=== PATIENT | male | born 1985 | race American Indian/Alaskan Native ===

== ENCOUNTER 2017-02-12 23:37 | Inpatient (IN) | payer SELFPAY ==
[2017-02-13] MEDS ORDERED: NACL 0.9% 1000 ML 2,000 ML IV ONE ×2 (01:51→06:34)
[2017-02-13] MEDS ORDERED: ZOFRAN IV ONE (01:53)
[2017-02-13 02:27] LABS: Basophils % (Auto) 0.9 % (0.0-1.8); Eosinophils % (Auto) 0.1 % (0.0-4.3); Hematocrit 42.6 % (35.5-45.6); Hemoglobin 14.3 gm/dl (11.8-15.2); Mean Corpuscular HGB Conc 34 % (32-34); Mean Corpuscular Hemoglobin 28 pg (28-32); Mean Corpuscular Volume 85 fl (84-94); Platelet Count 354 K/mm3 (140-440); Red Blood Count 5.02 M/mm3 (3.65-5.03); Red Cell Distribution Width 14.1 % (13.2-15.2)
[2017-02-13 02:48] LABS: Albumin 4.1 g/dL (3.9-5); Albumin/Globulin Ratio 1.1 %; Bilirubin,Total 0.4 mg/dL (0.1-1.2); Calcium 9.6 mg/dL (8.4-10.2); Chloride 77.4 mmol/L (98-107); Potassium 5.2 mmol/L (3.6-5.0); Total Protein 7.8 g/dL (6.3-8.2)
[2017-02-13] MEDS ORDERED: TYLENOL ONE (04:46)
[2017-02-13] MEDS ORDERED: TYLENOL PO ONE (04:58)
[2017-02-13] MEDS ORDERED: D50W (25GM) Syringe IV PRN (06:41)
[2017-02-13] MEDS ORDERED: NACL 0.9% 1000 ML 1,000 ML IV ONE (06:41)
[2017-02-13 06:49] LABS: Bilirubin,Urine NEG (Negative); Blood,Urine MOD (Negative); Ketones,Urine 80 mg/dL (Negative); Leukocyte Esterase,Urine NEG (Negative); Mucus,Urine FEW /HPF; Nitrite,Urine NEG (Negative); Urobilinogen,Urine < 2.0 mg/dL (<2.0)
[2017-02-13] MEDS ORDERED: MORPHINE IV ONE (06:49)
[2017-02-13] MEDS ORDERED: REGLAN IV ONE (06:51)
--- NOTE | 2017-02-13 06:52 | Emergency Department Report ---
ED N/V/D HPI - General Chief complaint: Hyperglycemia Stated complaint: ABD PAIN Time Seen by Provider: 02/13/17 06:41 Source: patient Mode of arrival: Ambulatory Limitations: No Limitations - History of Present Illness MD complaint: nausea, vomiting, abdominal pain -: Gradual, days(s) (6) Description of Vomiting: food contents Associated Abdominal Pain: Yes Location: [facility] Radiation: none Pain Scale: 10 - Related Data Allergies Allergy/AdvReac Type Severity Reaction Status Date / Time No Known Allergies Allergy Unverified 02/13/17 01:44 ED Review of Systems ROS: Stated complaint: ABD PAIN Other details as noted in HPI Constitutional: denies: chills, fever Eyes: denies: eye pain, eye discharge, vision change ENT: denies: ear pain, throat pain Respiratory: denies: cough, shortness of breath, wheezing Cardiovascular: denies: chest pain, palpitations Endocrine: no symptoms reported Gastrointestinal: nausea, vomiting. denies: diarrhea Genitourinary: denies: urgency, dysuria Musculoskeletal: denies: back pain, joint swelling, arthralgia Skin: denies: rash, lesions Neurological: denies: headache, weakness, paresthesias Psychiatric: denies: anxiety, depression Hematological/Lymphatic: denies: easy bleeding, easy bruising ED Past Medical Hx - Past Medical History Previous Medical History?: Yes Hx Hypertension: Yes Hx Diabetes: Yes - Surgical History Past Surgical History?: No - Social History Smoking Status: Current Every Day Smoker Substance Use Type: Marijuana ED Physical Exam - General Limitations: No Limitations General appearance: alert, in distress - Head Head exam: Present: atraumatic, normocephalic - Eye Eye exam: Present: normal appearance, EOMI - ENT ENT exam: Present: mucous membranes moist - Neck Neck exam: Present: normal inspection, full ROM - Respiratory Respiratory exam: Present: normal lung sounds bilaterally. Absent: respiratory distress, wheezes - Cardiovascular Cardiovascular Exam: Present: regular rate, normal rhythm. Absent: systolic murmur, diastolic murmur, rubs, gallop - GI/Abdominal GI/Abdominal exam: Present: soft, tenderness (LUPPER QUADRANT), normal bowel sounds - Rectal Rectal exam: Present: deferred - Extremities Exam Extremities exam: Present: normal inspection, full ROM - Back Exam Back exam: Present: normal inspection, full ROM - Neurological Exam Neurological exam: Present: alert, oriented X3 - Psychiatric Psychiatric exam: Present: normal affect, normal mood - Skin Skin exam: Present: warm, dry, intact, normal color. Absent: rash ED Course Vital Signs 02/13/17 02/13/17 02/13/17 00:27 00:32 01:40 Temperature 98.4 F 98.8 F Pulse Rate 121 H 125 H Respiratory 24 24 Rate Blood Pressure 161/111 161/111 Blood Pressure 161/111 [Right] O2 Sat by Pulse 100 100 100 Oximetry 02/13/17 02/13/17 02/13/17 05:00 06:00 06:23 Temperature 98.6 F Pulse Rate 114 H Respiratory 18 18 18 Rate Blood Pressure Blood Pressure 205/115 [Right] O2 Sat by Pulse 100 Oximetry 02/13/17 07:03 Temperature Pulse Rate Respiratory 16 Rate Blood Pressure Blood Pressure [Right] O2 Sat by Pulse Oximetry - Reevaluation(s) Reevaluation #1: 02/13/17 07:50 PT REQUIRING PAIN MEDICATION AND MEDICATON TO CONTROL NAUSEA ED Medical Decision Making - Lab Data Result diagrams: 02/13/17 02:12 02/13/17 07:15 - Radiology Data Radiology results: report reviewed (ACUTE ABD SERIES: NEGATIVE) Critical Care Time: Yes Critical care time in (mins) excluding proc time.: 60 Critical care attestation.: If time is entered above; I have spent that time in minutes in the direct care of this critically ill patient, excluding procedure time. BEVERLY Critical Care Time: 60MIN ED Disposition Clinical Impression: DKA, type 1 Qualifiers: Diabetes mellitus complication detail: without coma Qualified Code(s): E10.10 - Type 1 diabetes mellitus with ketoacidosis without coma Nausea & vomiting Qualifiers: Vomiting type: unspecified Vomiting Intractability: intractable Qualified Code( s): R11.2 - Nausea with vomiting, unspecified Abdominal pain Qualifiers: Abdominal location: upper abdomen, unspecified Qualified Code(s): R10.10 - Upper abdominal pain, unspecified Disposition: DC-09 OP ADMIT IP TO THIS HOSP Is pt being admited?: Yes Does the pt Need Aspirin: No Condition: Critical Instructions: Diabetic Ketoacidosis (ED) Referrals: KIRA LOPES MD [Primary Care Provider] - 3-5 Days Time of Disposition: 07:52 (CASE REVIEWED WITH ANAHY URIBE WHO WILL ADMIT THE PT TO THE HOSPITAL)
[2017-02-13] MEDS ORDERED: SODIUM CHLORIDE FLUSH SYRINGE 10 ML IV NR (07:00)
[2017-02-13] MEDS ORDERED: D5W/0.45% NACL/KCL 20 MEQ 20 MEQ/1,000 ML BAG IV SCH (07:00)
--- NOTE | 2017-02-13 07:23 | XRay Report ---
FINAL REPORT EXAM: XR ABD SERIES W CXR 1V HISTORY: abdominal pain,chest pain TECHNIQUE: An AP upright view of the chest was obtained along with three views of the abdomen. FINDINGS: The chest reveals normal heart size and mediastinum. The lungs are clear. The bones and soft tissues appear normal. The abdominal bowel gas pattern is within normal limits. There is no evidence of bowel distention or suspicious air-fluid levels. There is no evidence of mass effect or free air. There are several calcifications along the floor pelvis. The skeletal structures are well-maintained. IMPRESSION: No acute process in the chest. No acute process in the abdomen and pelvis.
[2017-02-13 07:43] LABS: Calcium 8.8 mg/dL (8.4-10.2); Chloride 83.7 mmol/L (98-107); Potassium 4.2 mmol/L (3.6-5.0)
[2017-02-13 07:44] LABS: Magnesium 2.5 mg/dL (1.7-2.3); Phosphorous 5.5 mg/dL (2.5-4.5)
[2017-02-13] MEDS: NovoLIN R 100 UNITS in NACL 0.9% 99 ML IV SCH ×3 (08:46→23:58)
[2017-02-13] MEDS ORDERED: ALUM-MAG HYDROX-SIMETH 200-200-20MG/5ML PO PRN (08:58)
[2017-02-13 09:00] LABS: Chloride 83.1 mmol/L (98-107)
[2017-02-13 09:49] LABS: Calcium 8.6 mg/dL (8.4-10.2); Magnesium 2.6 mg/dL (1.7-2.3); Potassium 3.9 mmol/L (3.6-5.0)
[2017-02-13] MEDS ORDERED: DULCOLAX PR PRN (10:00)
[2017-02-13] MEDS ORDERED: LOVENOX SUB-Q SCH (10:00)
[2017-02-13] MEDS: HEPARIN SUB-Q SCH ×2 (10:42→21:13)
[2017-02-13 10:54] LABS: Calcium 8.6 mg/dL (8.4-10.2); Chloride 94.6 mmol/L (98-107); Potassium 4.1 mmol/L (3.6-5.0)
[2017-02-13] MEDS ORDERED: NACL 0.9% 1000 ML 1,000 ML ONE (10:54)
[2017-02-13] MEDS ORDERED: NACL 0.9% 500 ML 500 ML IV ONE (11:02)
--- NOTE | 2017-02-13 12:13 | History and Physical Report ---
<RONY KAPADIA - Last Filed: 02/13/17 12:35> History of Present Illness Date of examination: 02/13/17 Date of admission: 02/13/17 08:58 Chief complaint: abdominal pain, nausea and vomiting History of present illness: Patient is a 31years old male with past medical histroy of diabetes mellitus type 1 who presents to the emergency department for abdominal pain, nausea and vomiting for the past 3 days.The patient states that for the past five days she has felt bloated and has had a decrease in appetite. Two days ago she began having intermittent generalized abdominal pain that initially felt like gas pains but it has now progressed to being nearly constant. Since 3 days ago he has had severe nausea and multiple times of bilious vomiting despite not having taken anything by mouth in over 24 hours. His last bowel movement was over 3 days ago. Initially, when he would eat the pain would increase but he has not eaten anything for over 24 hours. Vomiting is the only thing that seems to provide some minimal relief. Currently, the pain is described as a constant dull, diffuse pain and well localized. The intensity of the pain has been increasing over the past two days and on pain scale he now rates the pain at 5 out of 10. He denies a recent history of fever , jaundice, pruritis, diarrhea, hemoptysis, melena, or hematochezia. He reported polydipsia and polyuria. He denies chills or recent ill contact. Past History Past Medical History: diabetes (Type 1) Past Surgical History: No surgical history Social history: smoking Family history: diabetes, hypertension Medications and Allergies Allergies Allergy/AdvReac Type Severity Reaction Status Date / Time No Known Allergies Allergy Unverified 02/13/17 01:44 Home Medications Medication Instructions Recorded Confirmed Last Taken Type No Known Home Medications [No 02/13/17 02/13/17 Unknown History Reported Home Medications] Active Meds: Active Medications Al Hydrox/Mg Hydrox/Simethicone (Alum-Mag Hydrox-Simeth [id number]/5ml) 30 ml PO Q4H PRN PRN Reason: Indigestion Bisacodyl (Dulcolax) 10 mg MN QDAY PRN PRN Reason: constipation unrelieved by MOM Dextrose (D50w (25gm) Syringe) 0 ml IV PRN PRN PRN Reason: Hypoglycemia Heparin Sodium (Porcine) (Heparin) 5,000 unit SUB-Q Q12HR HAROON Potassium Chloride/Dextrose/Sod Cl (D5w/0.45% Nacl/Kcl 20 Meq) 20 meq in 1,000 mls @ 125 mls/hr IV DIRECT HAROON Insulin Human Regular 100 (units/ Sodium Chloride) 100 mls @ 6.35 mls/hr IV TITR HAROON; 6.35 UNITS/HR PRN Reason: Protocol Last Titration: 02/13/17 12:04 Dose: 4 units/hr, 4 mls/hr Morphine Sulfate (Morphine) 2 mg IV Q4H PRN PRN Reason: Pain, Moderate (4-6) Sodium Chloride (Sodium Chloride Flush Syringe 10 Ml) 10 ml IV PRN NR Stop: 02/18/17 23:59 Review of Systems Constitutional: weakness, malaise, poor appetite, no fever, no chills, no sweats Ears, nose, mouth and throat: no nasal congestion, no nasal discharge, no sinus pressure Cardiovascular: no chest pain, no orthopnea, no palpitations, no rapid/ irregular heart beat, no lightheadedness, no shortness of breath Respiratory: no excessive sputum, no hemoptysis, no shortness of breath Gastrointestinal: abdominal pain, nausea, vomiting, dyspepsia/bloating, no melena, no hematochezia, no jaundice Genitourinary Male: no urinary hesitancy, no nocturia, no erectile dysfunction Rectal: no incontinence Musculoskeletal: no low back pain, no shooting leg pain, no leg numbness/ tingling Integumentary: no pruritis, no redness, no sores Neurological: no numbness, no tingling, no seizures Psychiatric: no anxiety, no memory loss, no change in sleep habits, no sleep disturbances Endocrine: polyphagia, excessive thirst, polydipsia, no flushing, no weight change Hematologic/Lymphatic: no easy bruising, no easy bleeding Allergic/Immunologic: no urticaria, no allergic rhinitis Exam - Constitutional Vitals: Temp Pulse Resp BP Pulse Ox 98.6 F 84 12 201/100 98 02/13/17 06:23 02/13/17 11:30 02/13/17 11:30 02/13/17 11:30 02/13/17 11:30 General appearance: Present: no acute distress - EENT Eyes: Present: PERRL ENT: hearing intact - Neck Neck: Present: supple, normal ROM - Respiratory Respiratory effort: normal Respiratory: bilateral: CTA - Cardiovascular Rhythm: regular Heart Sounds: Present: S1 & S2 - Abdominal General gastrointestinal: Present: soft, non-tender Male genitourinary: Present: deferred - Rectal Rectal Exam: deferred - Integumentary Integumentary: Present: clear, warm, dry - Musculoskeletal Musculoskeletal: strength equal bilaterally - Psychiatric Psychiatric: appropriate mood/affect - Neurologic Neurologic: CNII-XII intact - Allied Health Allied health notes reviewed: nursing Results - Labs CBC & Chem 7: 02/13/17 02:12 02/13/17 10:20 Labs: Laboratory Last Values WBC 9.0 K/mm3 (4.5-11.0) 02/13/17 02:12 RBC 5.02 M/mm3 (3.65-5.03) 02/13/17 02:12 Hgb 14.3 gm/dl (11.8-15.2) 02/13/17 02:12 Hct 42.6 % (35.5-45.6) 02/13/17 02:12 MCV 85 fl (84-94) 02/13/17 02:12 MCH 28 pg (28-32) 02/13/17 02:12 MCHC 34 % (32-34) 02/13/17 02:12 RDW 14.1 % (13.2-15.2) 02/13/17 02:12 Plt Count 354 K/mm3 (140-440) 02/13/17 02:12 Lymph % (Auto) 10.5 % (13.4-35.0) L 02/13/17 02:12 [place] % (Auto) 2.5 % (0.0-7.3) 02/13/17 02:12 Eos % (Auto) 0.1 % (0.0-4.3) 02/13/17 02:12 Baso % (Auto) 0.9 % (0.0-1.8) 02/13/17 02:12 Lymph # 0.9 K/mm3 (1.2-5.4) L 02/13/17 02:12 [place] # 0.2 K/mm3 (0.0-0.8) 02/13/17 02:12 Eos # 0.0 K/mm3 (0.0-0.4) 02/13/17 02:12 Baso # 0.1 K/mm3 (0.0-0.1) 02/13/17 02:12 Seg Neutrophils % 86.0 % (40.0-70.0) H 02/13/17 02:12 Seg Neutrophils # 7.8 K/mm3 (1.8-7.7) H 02/13/17 02:12 VBG pH 7.315 (7.320-7.420) L 02/13/17 02:12 Sodium 134 mmol/L (137-145) L 02/13/17 10:20 Potassium 4.1 mmol/L (3.6-5.0) 02/13/17 10:20 Chloride 94.6 mmol/L (98-107) L 02/13/17 10:20 Carbon Dioxide 15 mmol/L (22-30) L 02/13/17 10:20 Anion Gap 29 mmol/L 02/13/17 10:20 BUN 56 mg/dL (9-20) H 02/13/17 10:20 Creatinine 4.0 mg/dL (0.8-1.5) H 02/13/17 10:20 Estimated GFR 21 ml/min 02/13/17 10:20 BUN/Creatinine Ratio 14 % 02/13/17 10:20 Glucose 260 mg/dL (75-100) H 02/13/17 10:20 POC Glucose 121 (70-105) H 02/13/17 11:59 Osmolality 329 Mosm/kg 02/13/17 09:12 Calcium 8.6 mg/dL (8.4-10.2) 02/13/17 10:20 Phosphorus 5.00 mg/dL (2.5-4.5) H 02/13/17 09:12 Magnesium 2.60 mg/dL (1.7-2.3) H 02/13/17 09:12 Total Bilirubin 0.40 mg/dL (0.1-1.2) 02/13/17 02:12 AST 14 units/L (5-40) 02/13/17 02:12 ALT 14 units/L (7-56) 02/13/17 02:12 Alkaline Phosphatase 114 units/L (35-129) 02/13/17 02:12 Total Protein 7.8 g/dL (6.3-8.2) 02/13/17 02:12 Albumin 4.1 g/dL (3.9-5) 02/13/17 02:12 Albumin/Globulin Ratio 1.1 % 02/13/17 02:12 Lipase 45 units/L (13-60) 02/13/17 02:12 Urine Color Straw (Yellow) 02/13/17 06:27 Urine Turbidity Clear (Clear) 02/13/17 06:27 Urine pH 5.0 (5.0-7.0) 02/13/17 06:27 Ur Specific [place] 1.016 (1.003-1.030) 02/13/17 06:27 Urine Protein 100 mg/dl mg/dL (Negative) 02/13/17 06:27 Urine Glucose (UA) >=500 mg/dL (Negative) 02/13/17 06:27 Urine Ketones 80 mg/dL (Negative) 02/13/17 06:27 Urine Blood Mod (Negative) 02/13/17 06:27 Urine Nitrite Neg (Negative) 02/13/17 06:27 Urine Bilirubin Neg (Negative) 02/13/17 06:27 Urine Urobilinogen < 2.0 mg/dL (<2.0) 02/13/17 06:27 Ur Leukocyte Esterase Neg (Negative) 02/13/17 06:27 Urine WBC (Auto) 1.0 /HPF (0.0-6.0) 02/13/17 06:27 Urine RBC (Auto) 1.0 /HPF (0.0-6.0) 02/13/17 06:27 U Epithel Cells (Auto) < 1.0 /HPF (0-13.0) 02/13/17 06:27 Hyaline Casts 1 /LPF 02/13/17 06:27 Urine Mucus Few /HPF 02/13/17 06:27 - Imaging and Cardiology Abdominal x-ray: image reviewed (unremarkable ) Assessment and Plan Assessment and plan: Patient is a 31years old male with past medical histroy of diabetes mellitus type 1 who presents to the emergency department for abdominal pain, nausea and vomiting for the past 3 days. Diabetic Ketoacidosis Patient will be admited to the intensive care unit Started on insulin drip IV fluid hydration Monitor blood sugar every hour We will get serial chemistry and closely monitor Acute renal failure/vasomotor nephropathy Likely due to DKA and dehydration Started on IV Hydration; if renal function not improved with fluids we will consider nephrology Closely monitor BMP Hypermagnesemia Secondary to DKA tx DKA IV fluid Closely monitor electrolytes Hyperphosphatemia Secondary to DKA tx DKA IV fluid Closely monitor electrolytes Tobacco abuse Smoking cessation patient was strongly advised to quit. DVT prophylaxis Heparin Advance Directives: Yes VTE prophylaxis?: Chemical Contraindication Mechanical VTE Prophylaxis: Treatment Not Indicated Plan of care discussed with patient/family: Yes <PETRA AVILES - Last Filed: 02/13/17 17:39> History of Present Illness Date of admission: 02/13/17 08:58 Medications and Allergies Active Meds: Active Medications Al Hydrox/Mg Hydrox/Simethicone (Alum-Mag Hydrox-Simeth [id number]/5ml) 30 ml PO Q4H PRN PRN Reason: Indigestion Bisacodyl (Dulcolax) 10 mg MN QDAY PRN PRN Reason: constipation unrelieved by MOM Dextrose (D50w (25gm) Syringe) 0 ml IV PRN PRN PRN Reason: Hypoglycemia Last Admin: 02/13/17 14:52 Dose: 15 ml Heparin Sodium (Porcine) (Heparin) 5,000 unit SUB-Q Q12HR HAROON Last Admin: 02/13/17 10:42 Dose: Not Given Insulin Human Regular 100 (units/ Sodium Chloride) 100 mls @ 6.35 mls/hr IV TITR HAROON; 6.35 UNITS/HR PRN Reason: Protocol Last Titration: 02/13/17 12:04 Dose: 4 units/hr, 4 mls/hr Potassium Chloride/Dextrose/Sod Cl (D5w/0.45% Nacl/Kcl 20 Meq) 20 meq in 1,000 mls @ 125 mls/hr IV DIRECT HAROON Morphine Sulfate (Morphine) 2 mg IV Q4H PRN PRN Reason: Pain, Moderate (4-6) Sodium Chloride (Sodium Chloride Flush Syringe 10 Ml) 10 ml IV PRN NR Stop: 02/18/17 23:59 Exam - Constitutional Vitals: Temp Pulse Resp BP Pulse Ox 98.6 F 75 11 L 194/95 99 02/13/17 06:23 02/13/17 16:30 02/13/17 16:30 02/13/17 16:30 02/13/17 16:30 Results - Labs CBC & Chem 7: 02/13/17 02:12 02/13/17 16:42 Labs: Laboratory Last Values WBC 9.0 K/mm3 (4.5-11.0) 02/13/17 02:12 RBC 5.02 M/mm3 (3.65-5.03) 02/13/17 02:12 Hgb 14.3 gm/dl (11.8-15.2) 02/13/17 02:12 Hct 42.6 % (35.5-45.6) 02/13/17 02:12 MCV 85 fl (84-94) 02/13/17 02:12 MCH 28 pg (28-32) 02/13/17 02:12 MCHC 34 % (32-34) 02/13/17 02:12 RDW 14.1 % (13.2-15.2) 02/13/17 02:12 Plt Count 354 K/mm3 (140-440) 02/13/17 02:12 Lymph % (Auto) 10.5 % (13.4-35.0) L 02/13/17 02:12 [place] % (Auto) 2.5 % (0.0-7.3) 02/13/17 02:12 Eos % (Auto) 0.1 % (0.0-4.3) 02/13/17 02:12 Baso % (Auto) 0.9 % (0.0-1.8) 02/13/17 02:12 Lymph # 0.9 K/mm3 (1.2-5.4) L 02/13/17 02:12 [place] # 0.2 K/mm3 (0.0-0.8) 02/13/17 02:12 Eos # 0.0 K/mm3 (0.0-0.4) 02/13/17 02:12 Baso # 0.1 K/mm3 (0.0-0.1) 02/13/17 02:12 Seg Neutrophils % 86.0 % (40.0-70.0) H 02/13/17 02:12 Seg Neutrophils # 7.8 K/mm3 (1.8-7.7) H 02/13/17 02:12 VBG pH 7.315 (7.320-7.420) L 02/13/17 02:12 Sodium 136 mmol/L (137-145) L 02/13/17 16:42 Potassium 4.5 mmol/L (3.6-5.0) 02/13/17 16:42 Chloride 96.7 mmol/L (98-107) L 02/13/17 16:42 Carbon Dioxide 17 mmol/L (22-30) L 02/13/17 16:42 Anion Gap 27 mmol/L 02/13/17 16:42 BUN 47 mg/dL (9-20) H 02/13/17 16:42 Creatinine 3.6 mg/dL (0.8-1.5) H 02/13/17 16:42 Estimated GFR 24 ml/min 02/13/17 16:42 BUN/Creatinine Ratio 13 % 02/13/17 16:42 Glucose 109 mg/dL (75-100) H 02/13/17 16:42 POC Glucose 81 (70-105) 02/13/17 16:22 Osmolality 329 Mosm/kg 02/13/17 09:12 Calcium 8.7 mg/dL (8.4-10.2) 02/13/17 16:42 Phosphorus 5.00 mg/dL (2.5-4.5) H 02/13/17 09:12 Magnesium 2.60 mg/dL (1.7-2.3) H 02/13/17 09:12 Total Bilirubin 0.40 mg/dL (0.1-1.2) 02/13/17 02:12 AST 14 units/L (5-40) 02/13/17 02:12 ALT 14 units/L (7-56) 02/13/17 02:12 Alkaline Phosphatase 114 units/L (35-129) 02/13/17 02:12 Total Protein 7.8 g/dL (6.3-8.2) 02/13/17 02:12 Albumin 4.1 g/dL (3.9-5) 02/13/17 02:12 Albumin/Globulin Ratio 1.1 % 02/13/17 02:12 Lipase 45 units/L (13-60) 02/13/17 02:12 Urine Color Straw (Yellow) 02/13/17 06:27 Urine Turbidity Clear (Clear) 02/13/17 06:27 Urine pH 5.0 (5.0-7.0) 02/13/17 06:27 Ur Specific [place] 1.016 (1.003-1.030) 02/13/17 06:27 Urine Protein 100 mg/dl mg/dL (Negative) 02/13/17 06:27 Urine Glucose (UA) >=500 mg/dL (Negative) 02/13/17 06:27 Urine Ketones 80 mg/dL (Negative) 02/13/17 06:27 Urine Blood Mod (Negative) 02/13/17 06:27 Urine Nitrite Neg (Negative) 02/13/17 06:27 Urine Bilirubin Neg (Negative) 02/13/17 06:27 Urine Urobilinogen < 2.0 mg/dL (<2.0) 02/13/17 06:27 Ur Leukocyte Esterase Neg (Negative) 02/13/17 06:27 Urine WBC (Auto) 1.0 /HPF (0.0-6.0) 02/13/17 06:27 Urine RBC (Auto) 1.0 /HPF (0.0-6.0) 02/13/17 06:27 U Epithel Cells (Auto) < 1.0 /HPF (0-13.0) 02/13/17 06:27 Hyaline Casts 1 /LPF 02/13/17 06:27 Urine Mucus Few /HPF 02/13/17 06:27 Assessment and Plan Assessment and plan: The high probability of a clinically significant, sudden or life threatening deterioration of the [Endocrine, Renal] system(s) required my full and direct attention, intervention and personal management. The aggregate critical care time was [35] minutes. This time is in addition to time spent performing reported procedures but includes the following: [x] Data Review and interpretation [x] Patient assessment and monitoring of vital signs [x] Documentation [x] Medication orders and management I saw and evaluated the patient. I agree with the findings and the plan of care as documented in the Nurse Practitioner's H/P note. Advance Directives: Yes VTE prophylaxis?: Chemical Plan of care discussed with patient/family: Yes
[2017-02-13] MEDS ORDERED: D5/0.45NS 1,000 ML IV SCH (13:00)
[2017-02-13 13:46] LABS: Calcium 8.4 mg/dL (8.4-10.2); Chloride 102.2 mmol/L (98-107); Potassium 3.9 mmol/L (3.6-5.0)
[2017-02-13 14:20] LABS: Calcium 8.5 mg/dL (8.4-10.2); Chloride 101.7 mmol/L (98-107); Potassium 4.1 mmol/L (3.6-5.0)
[2017-02-13 17:22] LABS: Calcium 8.7 mg/dL (8.4-10.2); Chloride 96.7 mmol/L (98-107); Potassium 4.5 mmol/L (3.6-5.0)
[2017-02-13] MEDS: D5W/0.45% NACL/KCL 20 MEQ 20 MEQ/1,000 ML BAG IV SCH (21:15)
[2017-02-13] MEDS: MORPHINE IV PRN (21:23)
[2017-02-13] MEDS: CARDENE 50 MG in NACL 0.9% 250ML 230 ML IV SCH ×2 (21:51→23:27)
[2017-02-14] MEDS: NovoLIN R 100 UNITS in NACL 0.9% 99 ML IV SCH ×3 (00:49→04:00)
[2017-02-14 01:01] LABS: Calcium 8.4 mg/dL (8.4-10.2); Chloride 101.5 mmol/L (98-107); Potassium 3.9 mmol/L (3.6-5.0)
[2017-02-14] MEDS: D5W/0.45% NACL/KCL 20 MEQ 20 MEQ/1,000 ML BAG IV SCH (04:57)
[2017-02-14 06:17] LABS: Basophils % (Auto) 0.9 % (0.0-1.8); Eosinophils % (Auto) 1.5 % (0.0-4.3); Hematocrit 33.1 % (35.5-45.6); Mean Corpuscular HGB Conc 33 % (32-34); Mean Corpuscular Hemoglobin 28 pg (28-32); Mean Corpuscular Volume 83 fl (84-94); Platelet Count 295 K/mm3 (140-440); Red Blood Count 3.98 M/mm3 (3.65-5.03); Red Cell Distribution Width 13.8 % (13.2-15.2)
[2017-02-14 06:31] LABS: Calcium 8.4 mg/dL (8.4-10.2); Chloride 102.2 mmol/L (98-107); Potassium 3.9 mmol/L (3.6-5.0)
[2017-02-14] MEDS: MORPHINE IV PRN ×2 (08:07→15:07)
--- NOTE | 2017-02-14 08:39 | Consultation ---
History of Present Illness - Reason for Consult Consult date: 02/14/17 acute renal failure, hyperkalemia, metabolic acidosis - History of Present Illness The patient is a 31 YO AAM with medical history significant for Diabetes mellitus type 1 since 4 yrs old, Hypertension and CKD who presented to the Emergency department with 3 days h/o abdominal pain, nausea and vomiting. He has had multiple episodes of bilious vomiting. The abd. pain is described as diffuse, constant dull pain. Since he ran out of the strips he couldn't test his blood sugar. He is currently not followed by any Physician. On admission the labs are significant for blood sugar 661, K 5.2, creatinine 4.6 and urine positive for ketones. He is being treated for DKA. His symtpoms are better at this time. He had a similar admission at [facility] earlier this year and he was told that he has advanced stage kidney disease and close to getting dialysis. Past History Past Medical History: diabetes (Type 1), hypertension, renal failure Past Surgical History: No surgical history Social history: smoking Family history: diabetes, hypertension Medications and Allergies Allergies Allergy/AdvReac Type Severity Reaction Status Date / Time No Known Allergies Allergy Unverified 02/13/17 01:44 Home Medications Medication Instructions Recorded Confirmed Last Taken Type Insulin NPH, Human [NovoLIN N] 13 unit SUB-Q QPMDIAB #1 vial 02/15/17 Unknown Rx Insulin NPH/Regular [NovoLIN 70/30] 26 unit SUB-Q QAMDIAB #1 vial 02/15/17 Unknown Rx Metoprolol [Lopressor TAB] 50 mg PO BID #30 tablet 02/15/17 Unknown Rx Active Meds: Active Medications Al Hydrox/Mg Hydrox/Simethicone (Alum-Mag Hydrox-Simeth 398-482-68pf/5ml) 30 ml PO Q4H PRN PRN Reason: Indigestion Bisacodyl (Dulcolax) 10 mg [place] QDAY PRN PRN Reason: constipation unrelieved by MOM Heparin Sodium (Porcine) (Heparin) 5,000 unit SUB-Q Q12HR HAROON Last Admin: 02/13/17 21:13 Dose: 5,000 unit Nicardipine HCl 50 mg/ Sodium (Chloride) 250 mls @ 25 mls/hr IV TITR HAROON; 5 MG/ HR PRN Reason: Protocol Last Admin: 02/13/17 23:27 Dose: 2.5 mg/hr, 12.5 mls/hr Sodium Chloride (Nacl 0.45% 1000 Ml) 1,000 mls @ 100 mls/hr IV DIRECT HAROON Morphine Sulfate (Morphine) 2 mg IV Q4H PRN PRN Reason: Pain, Moderate (4-6) Last Admin: 02/14/17 08:07 Dose: 2 mg Sodium Chloride (Sodium Chloride Flush Syringe 10 Ml) 10 ml IV PRN NR Stop: 02/18/17 23:59 Review of Systems Constitutional: anorexia, weakness, malaise, no weight loss, no weight gain, no fever, no chills Ears, nose, mouth and throat: no epistaxis Cardiovascular: high blood pressure, no chest pain, no orthopnea, no edema, no syncope, no lightheadedness, no shortness of breath, no leg edema Respiratory: no cough, no cough with sputum, no hemoptysis, no shortness of breath, no dyspnea on exertion Gastrointestinal: abdominal pain, nausea, vomiting, constipation, no diarrhea, no melena, no hematochezia Genitourinary Male: no dysuria, no hematuria Rectal: no bleeding Musculoskeletal: no redness of joints, no hot joints Integumentary: no rash, no pruritis, no wounds, no jaundice Neurological: no paralysis, no seizures, no syncope, no convulsions, no aphasia , no confusion Psychiatric: change in appetite, no disorientation Endocrine: polydipsia, polyuria, no weight change Hematologic/Lymphatic: no easy bleeding Exam - Vital Signs Vital signs: Vital Signs Pulse BP Pulse Ox 121 H 161/111 100 02/13/17 00:27 02/13/17 00:27 02/13/17 00:27 - General Appearance General appearance: well-developed, well-nourished, appears stated age, other ( no distress) EENT: ATNC, PERRL, mucous membranes moist, hearing intact, vision intact Neck: Present: neck supple, trachea midline Respiratory: Clear to Ascultation Heart: regular, S1S2, no murmurs Gastrointestinal: Present: normoactive bowel sounds. Absent: tenderness, distended Integumentary: no rash, warm and dry Neurologic: no focal deficit, no asterixis, alert and oriented x3, CN 3-12 intact Musculoskeletal: Present: other (no edema) Psychiatric: mood/affect appropriate, cooperative Results - Lab Results 02/15/17 05:06 02/15/17 05:06 Most recent lab results Calcium 8.4 mg/dL (8.4-10.2) 02/14/17 05:24 Phosphorus 5.00 mg/dL (2.5-4.5) H 02/13/17 09:12 Magnesium 2.60 mg/dL (1.7-2.3) H 02/13/17 09:12 - Image Kidney/bladder ultrasound: other Assessment and Plan 1. Acute kidney injury: JOSE GUADALUPE superimposed on CKD in the setting of DKA. Renal function is improving. Continue IV fluids. 2. Hyperkalemia: Improved. 3. DKA: Improving. 4. Likely CKD stage 4. 5. Anemia.
[2017-02-14] MEDS ORDERED: APRESOLINE IV PRN (09:59)
[2017-02-14] MEDS: HEPARIN SUB-Q SCH ×2 (10:39→21:29)
[2017-02-14 10:41] LABS: Urine Drugs of Abuse Note Disclamer
[2017-02-14] MEDS: NORVASC PO SCH (11:19)
[2017-02-14] MEDS ORDERED: NOVOLOG SUB-Q SCH (11:30)
[2017-02-14 12:42] LABS: Calcium 8.2 mg/dL (8.4-10.2); Potassium 4.6 mmol/L (3.6-5.0)
[2017-02-14] MEDS ORDERED: D50W (25GM) Syringe IV PRN (13:57)
[2017-02-14] MEDS: NACL 0.45% 1000 ML 1,000 ML IV SCH (15:10)
[2017-02-14] MEDS: NOVOLOG SUB-Q SCH ×3 (15:56→23:30)
--- NOTE | 2017-02-14 17:21 | Progress Note ---
Assessment and Plan Assessment and plan: DKA - Treated according to DKA protocol - Resolved Diabetes mellitus type 1 with hyperglycemia - Continue home dose of 70/30 and sliding scale insulin - Accu-Chek, ADA diet Acute on chronic renal failure - Likely due to diabetes mellitus and dehydration - IV fluids, nephrology consulted DVT prophylaxis - Heparin Disposition -Possible discharge tomorrow History Interval history: Patient was seen and evaluated at the bedside, nausea and vomiting stopped. No new complaints Hospitalist Physical - Physical exam Narrative exam: Not in cardiopulmonary distress. The patient appeared well nourished and normally developed. Vital signs as documented. Head exam is unremarkable. No scleral icterus . Neck is without jugular venous distension, thyromegaly, or carotid bruits. Lungs are clear to auscultation. Cardiac exam reveals regular rate and Rhythm. First and second heart sounds normal. No murmurs, rubs or gallops. Abdominal exam reveals normal bowel sounds, no masses, no organomegaly and no aortic enlargement. Extremities are nonedematous and both femoral and pedal pulses are normal. 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 No focal weakness. - Constitutional Vitals: Temp Pulse Resp BP Pulse Ox 98.9 F 93 H 18 153/93 98 02/14/17 15:48 02/14/17 15:48 02/14/17 15:48 02/14/17 15:48 02/14/17 15:48 General appearance: Present: no acute distress Results - Labs CBC & Chem 7: 02/14/17 05:24 02/14/17 10:58 Labs: Laboratory Last Values WBC 8.0 K/mm3 (4.5-11.0) 02/14/17 05:24 RBC 3.98 M/mm3 (3.65-5.03) 02/14/17 05:24 Hgb 11.0 gm/dl (11.8-15.2) L D 02/14/17 05:24 Hct 33.1 % (35.5-45.6) L D 02/14/17 05:24 MCV 83 fl (84-94) L 02/14/17 05:24 MCH 28 pg (28-32) 02/14/17 05:24 MCHC 33 % (32-34) 02/14/17 05:24 RDW 13.8 % (13.2-15.2) 02/14/17 05:24 Plt Count 295 K/mm3 (140-440) 02/14/17 05:24 Lymph % (Auto) 22.5 % (13.4-35.0) 02/14/17 05:24 [place] % (Auto) 4.5 % (0.0-7.3) 02/14/17 05:24 Eos % (Auto) 1.5 % (0.0-4.3) 02/14/17 05:24 Baso % (Auto) 0.9 % (0.0-1.8) 02/14/17 05:24 Lymph # 1.8 K/mm3 (1.2-5.4) 02/14/17 05:24 [place] # 0.4 K/mm3 (0.0-0.8) 02/14/17 05:24 Eos # 0.1 K/mm3 (0.0-0.4) 02/14/17 05:24 Baso # 0.1 K/mm3 (0.0-0.1) 02/14/17 05:24 Seg Neutrophils % 70.6 % (40.0-70.0) H 02/14/17 05:24 Seg Neutrophils # 5.7 K/mm3 (1.8-7.7) 02/14/17 05:24 VBG pH 7.315 (7.320-7.420) L 02/13/17 02:12 Sodium 132 mmol/L (137-145) L 02/14/17 10:58 Potassium 4.6 mmol/L (3.6-5.0) 02/14/17 10:58 Chloride 98.0 mmol/L (98-107) 02/14/17 10:58 Carbon Dioxide 17 mmol/L (22-30) L 02/14/17 10:58 Anion Gap 22 mmol/L 02/14/17 10:58 BUN 37 mg/dL (9-20) H 02/14/17 10:58 Creatinine 3.7 mg/dL (0.8-1.5) H 02/14/17 10:58 Estimated GFR 23 ml/min 02/14/17 10:58 BUN/Creatinine Ratio 10 % 02/14/17 10:58 Glucose 327 mg/dL (75-100) H 02/14/17 10:58 POC Glucose 284 (70-105) H 02/14/17 16:35 Hemoglobin A1c 12.2 % (4-6) H 02/14/17 05:24 Osmolality 329 Mosm/kg 02/13/17 09:12 Calcium 8.2 mg/dL (8.4-10.2) L 02/14/17 10:58 Phosphorus 5.00 mg/dL (2.5-4.5) H 02/13/17 09:12 Magnesium 2.60 mg/dL (1.7-2.3) H 02/13/17 09:12 Total Bilirubin 0.40 mg/dL (0.1-1.2) 02/13/17 02:12 AST 14 units/L (5-40) 02/13/17 02:12 ALT 14 units/L (7-56) 02/13/17 02:12 Alkaline Phosphatase 114 units/L (35-129) 02/13/17 02:12 Total Protein 7.8 g/dL (6.3-8.2) 02/13/17 02:12 Albumin 4.1 g/dL (3.9-5) 02/13/17 02:12 Albumin/Globulin Ratio 1.1 % 02/13/17 02:12 Lipase 45 units/L (13-60) 02/13/17 02:12 Urine Color Straw (Yellow) 02/13/17 06:27 Urine Turbidity Clear (Clear) 02/13/17 06:27 Urine pH 5.0 (5.0-7.0) 02/13/17 06:27 Ur Specific [place] 1.016 (1.003-1.030) 02/13/17 06:27 Urine Protein 100 mg/dl mg/dL (Negative) 02/13/17 06:27 Urine Glucose (UA) >=500 mg/dL (Negative) 02/13/17 06:27 Urine Ketones 80 mg/dL (Negative) 02/13/17 06:27 Urine Blood Mod (Negative) 02/13/17 06:27 Urine Nitrite Neg (Negative) 02/13/17 06:27 Urine Bilirubin Neg (Negative) 02/13/17 06:27 Urine Urobilinogen < 2.0 mg/dL (<2.0) 02/13/17 06:27 Ur Leukocyte Esterase Neg (Negative) 02/13/17 06:27 Urine WBC (Auto) 1.0 /HPF (0.0-6.0) 02/13/17 06:27 Urine RBC (Auto) 1.0 /HPF (0.0-6.0) 02/13/17 06:27 U Epithel Cells (Auto) < 1.0 /HPF (0-13.0) 02/13/17 06:27 Hyaline Casts 1 /LPF 02/13/17 06:27 Urine Mucus Few /HPF 02/13/17 06:27 Urine Creatinine 100.0 mg/dL (0.1-20.0) H 02/14/17 10:25 Urine Sodium 50 mmol/L 02/14/17 10:25 Urine Opiates Screen Presumptive negative 02/13/17 10:25 Urine Methadone Screen Presumptive negative 02/13/17 10:25 Ur Barbiturates Screen Presumptive negative 02/13/17 10:25 Ur Phencyclidine Scrn Presumptive negative 02/13/17 10:25 Ur Amphetamines Screen Presumptive negative 02/13/17 10:25 U Benzodiazepines Scrn Presumptive negative 02/13/17 10:25 Urine Cocaine Screen Presumptive negative 02/13/17 10:25 U Marijuana (THC) Screen Presumptive positive 02/13/17 10:25 Drugs of Abuse Note Disclamer 02/13/17 10:25
[2017-02-14] MEDS ORDERED: HEPARIN SUB-Q SCH (22:00)
[2017-02-15 05:42] LABS: Basophils % (Auto) 1.4 % (0.0-1.8); Eosinophils % (Auto) 3.2 % (0.0-4.3); Hematocrit 34.8 % (35.5-45.6); Hemoglobin 11.6 gm/dl (11.8-15.2); Mean Corpuscular HGB Conc 33 % (32-34); Mean Corpuscular Hemoglobin 28 pg (28-32); Mean Corpuscular Volume 83 fl (84-94); Platelet Count 277 K/mm3 (140-440); Red Blood Count 4.18 M/mm3 (3.65-5.03); Red Cell Distribution Width 13.8 % (13.2-15.2); White Blood Count 4.2 K/mm3 (4.5-11.0)
[2017-02-15 05:56] LABS: Calcium 8.5 mg/dL (8.4-10.2); Phosphorous 2.4 mg/dL (2.5-4.5)
[2017-02-15 05:57] LABS: Chloride 100.5 mmol/L (98-107)
[2017-02-15 06:05] LABS: Potassium 3.2 mmol/L (3.6-5.0)
[2017-02-15] MEDS: MORPHINE IV PRN (07:43)
[2017-02-15] MEDS: NACL 0.45% 1000 ML 1,000 ML IV SCH (07:46)
--- NOTE | 2017-02-15 08:05 | Progress Note ---
Assessment and Plan 1. Acute kidney injury: JOSE GUADALUPE superimposed on CKD in the setting of DKA. Renal function continue to improve. Continue IV fluids. 2. Hypokalemia: Replete K and Phos. 3. DKA: Improving. 4. Likely CKD stage 4. 5. Anemia. F/u with me in 2 weeks. Subjective Date of service: 02/15/17 Interval history: Patient is feeling better. Objective - Vital Signs Vital signs: Vital Signs - 12hr 02/14/17 02/14/17 02/15/17 23:39 23:52 00:08 Temperature 98.1 F 98.1 F Pulse Rate 94 H Pulse Rate [ 94 H Left Radial] Respiratory 20 20 Rate Blood Pressure 188/109 188/109 188/109 O2 Sat by Pulse Oximetry 02/15/17 04:23 Temperature 98.6 F Pulse Rate 98 H Pulse Rate [ Left Radial] Respiratory 22 Rate Blood Pressure 153/93 O2 Sat by Pulse 99 Oximetry - General Appearance General appearance: well-developed, well-nourished, appears stated age, other ( no distress) EENT: ATNC, PERRL, mucous membranes moist, hearing intact Neck: supple Respiratory: Present: Clear to Ascultation Cardiology: regular, S1S2, no murmurs Gastrointestinal: normoactive bowel sounds, no tenderness, no distended Integumentary: no rash, warm and dry Neurologic: no focal deficit, no asterixis, alert and oriented x3 Musculoskeletal: other (no edema) Psychiatric: mood/affect appropriate, cooperative - Lab 02/15/17 05:06 02/15/17 05:06 Most recent lab results Calcium 8.5 mg/dL (8.4-10.2) 02/15/17 05:06 Phosphorus 2.40 mg/dL (2.5-4.5) L 02/15/17 05:06 Magnesium 2.60 mg/dL (1.7-2.3) H 02/13/17 09:12 Urine Creatinine 100.0 mg/dL (0.1-20.0) H 02/14/17 10:25 Urine Sodium 50 mmol/L 02/14/17 10:25
[2017-02-15] MEDS: NOVOLOG SUB-Q SCH ×3 (08:30→17:36)
[2017-02-15] MEDS ORDERED: LOPRESSOR PO SCH (10:00)
[2017-02-15] MEDS: NORVASC PO SCH (10:04)
[2017-02-15] MEDS: HEPARIN SUB-Q SCH (10:05)
[2017-02-15] MEDS: K-PHOS NEUTRAL PO SCH ×2 (10:48→15:14)
--- NOTE | 2017-02-15 11:50 | Discharge Summary ---
Providers - Providers Date of Admission: 02/13/17 08:58 Date of discharge: 02/15/17 Attending physician: PETRA AVILES MD 02/14/17 07:31 Consult to Physician [CONS] Routine Consulting Provider: YASMANY ELLIS Reason For Exam: JOSE GUADALUPE Place consult to:: Dr Ellis Notified:: yes Was contact made?: Yes If yes, spoke with:: Dr Ludwig Time called:: 08:11 Comment:: coming to see the pt Primary care physician: KIRA LOPES Hospitalization Reason for admission: DKA, acute on chronic renal failure Condition: Critical Hospital course: Patient was admitted to for DkA and was treated according top DKA protocol and DKA resolved and transferred to the floor. Blood sugar was controlled and insulin was refilled at the time of discharge. Patient has acute on chronic renal failure and nephrology was consulted and has been followed there before admission and recommended to continue follow up. Disposition: TO HOME OR SELFCARE Time spent for discharge: 33 minutes - Discharge Diagnoses (1) Acute on chronic kidney failure Status: Acute (2) Abdominal pain Status: Acute Qualifiers: Abdominal location: upper abdomen, unspecified Qualified Code(s): R10.10 - Upper abdominal pain, unspecified (3) DKA, type 1 Status: Acute Qualifiers: Diabetes mellitus complication detail: without coma Qualified Code(s): E10.10 - Type 1 diabetes mellitus with ketoacidosis without coma (4) Nausea & vomiting Status: Acute Qualifiers: Vomiting type: unspecified Vomiting Intractability: intractable Qualified Code(s): R11.2 - Nausea with vomiting, unspecified Core Measure Documentation - Palliative Care Palliative Care/ Comfort Measures: Not Applicable - Core Measures Any of the following diagnoses?: none Exam - Physical Exam Narrative exam: Not in cardiopulmonary distress. The patient appeared well nourished and normally developed. Vital signs as documented. Head exam is unremarkable. No scleral icterus . Neck is without jugular venous distension, thyromegaly, or carotid bruits. Lungs are clear to auscultation. Cardiac exam reveals regular rate and Rhythm. First and second heart sounds normal. No murmurs, rubs or gallops. Abdominal exam reveals normal bowel sounds, no masses, no organomegaly and no aortic enlargement. Extremities are nonedematous and both femoral and pedal pulses are normal. 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 - Constitutional Vitals: Temp Pulse Resp BP Pulse Ox 99.2 F 98 H 20 153/94 100 02/15/17 07:22 02/15/17 10:04 02/15/17 07:22 02/15/17 10:04 02/15/17 07:22 Plan Activity: no restrictions Weight Bearing Status: Full Weight Bearing Diet: diabetic Follow up with: KIRA LOPES MD [Primary Care Provider] - 7 Days Prescriptions: Insulin NPH, Human [NovoLIN N] 13 unit SUB-Q QPMDIAB #1 vial Insulin NPH/Regular [NovoLIN 70/30] 26 unit SUB-Q QAMDIAB #1 vial Metoprolol [Lopressor TAB] 50 mg PO BID #30 tablet
[2017-02-15 17:28] VITALS: BP 148/85
== END 2017-02-15 17:25 | disposition home or self-care (01) | DRG 637 ==
LOC: ED 23:37 → CC1 02-13 08:58 → 3A 02-14 13:18
PROVIDERS: ADMIT Internal Medicine; ATTEND Internal Medicine
DX: E10.10 Type 1 diabetes mellitus with ketoacidosis without coma (principal); N17.0 Acute kidney failure with tubular necrosis; F17.200 Nicotine dependence, unspecified, uncomplicated; F12.90 Cannabis use, unspecified, uncomplicated; N18.9 Chronic kidney disease, unspecified; E83.41 Hypermagnesemia; E87.5 Hyperkalemia; D64.9 Anemia, unspecified; E86.0 Dehydration; E83.39 Other disorders of phosphorus metabolism; E10.22 Type 1 diabetes mellitus with diabetic chronic kidney disease; I12.9 Hypertensive chronic kidney disease with stage 1 through stage 4 chronic kidney disease, or unspecified chronic kidney disease; Z91.19 Patient's noncompliance with other medical treatment and regimen; Z83.3 Family history of diabetes mellitus; Z82.49 Family history of ischemic heart disease and other diseases of the circulatory system; Z71.6 Tobacco abuse counseling
CPT/HCPCS: 36415; 74022; 80048; 80053; 80307; 81001; 82570; 82805; 82962; 83036; 83690; 83735; 83930; 83970; 84100; 84300; 85025; 99291; 99406; J0360; J1644; J1815; J2270; J2405; J2765; J7030; J7050